=== PATIENT | female | born 2005 | race Caucasian/White ===

== ENCOUNTER 2025-07-04 12:41 | Inpatient (IN) | payer BC ==
[~2025-07-04] VITALS: Ht 157.5 cm; Wt 64.0 kg
[2025-07-04 12:45] VITALS: O2SAT 99
[2025-07-04] MEDS: LEVETIRACETAM 1000MG PREMIX 100 ML IV ONE (14:38)
[2025-07-04 14:45] LABS: HEMATOCRIT. 39.1 % (36.0-48.0); HEMOGLOBIN. 13.0 g/dL (12.0-16.0); MEAN PLATELET VOLUME 7.9 fl (7.4-10.4); PLATELET 412 x1000/uL (130-400); RED BLOOD CELL COUNT 4.29 mill/uL (4.2-5.4); RED CELL DISTRIBUTION WIDTH 13.6 % (11.6-14.6)
[2025-07-04 14:58] LABS: CREATININE 0.7 mg/dL (0.6-1.0)
[2025-07-04 14:59] LABS: ETHANOL BLOOD < 10 mg/dL (<10); UREA NITROGEN BLOOD 9 mg/dL (9-23)
[2025-07-04 15:00] LABS: ASPARTATE AMINOTRANSFERASE 16 IU/L (<34); PROTEIN TOTAL 7.0 g/dL (6.0-8.3)
[2025-07-04 15:01] LABS: BILIRUBIN DIRECT 0.1 mg/dL (<=3.0); BILIRUBIN TOTAL 0.4 mg/dL (0.1-1.0)
[2025-07-04 15:29] LABS: HCG SCREEN NEGATIVE
[2025-07-04 15:46] LABS: LYMPHOCYTES % MANUAL 14.0 % (20.0-60.0); MONOCYTES % MANUAL 3.0 % (2.0-8.0); NEUTROPHILS % MANUAL 83.0 % (45.0-75.0); PLATELET ESTIMATE INCREASED
[2025-07-04 18:38] LABS: CLARITY URINE CLOUDY (CLEAR); COLOR URINE YELLOW (YELLOW); GLUCOSE URINE NEGATIVE (NEGATIVE); KETONES URINE TRACE (NEGATIVE); LEUKOCYTE ESTERASE URINE NEGATIVE (NEGATIVE); NITRITE URINE NEGATIVE (NEGATIVE); OCCULT BLOOD URINE TRACE (NEGATIVE); PH URINE 5.0 (4.5-8.0); PROTEIN URINE TRACE (NEGATIVE); SPECIFIC GRAVITY URINE 1.018 (1.005-1.030); UROBILINOGEN URINE 0.2 E.U./dL (0.2-1.0)
[2025-07-04 18:48] LABS: *AMPHETAMINES SCREEN URINE NEGATIVE (NEGATIVE); *BARBITURATES SCREEN URINE NEGATIVE (NEGATIVE); *BENZODIAZEPINES SCREEN URINE NEGATIVE (NEGATIVE); *COCAINE SCREEN URINE NEGATIVE (NEGATIVE); CANNABINOID URINE SCREEN NEGATIVE (NEGATIVE); ECSTASY MDMA SCREEN URINE NEGATIVE (NEGATIVE); METHADONE URINE SCREEN NEGATIVE (NEGATIVE); OPIATES URINE SCREEN NEGATIVE (NEGATIVE); PHENCYCLIDINE URINE SCREEN NEGATIVE (NEGATIVE)
[2025-07-04 19:45] LABS: RBC URINE NONE SEEN /hpf (0-2); WBC URINE 0-2 /hpf (0-2)
[2025-07-04 19:46] LABS: BACTERIA URINE TRACE; MUCUS URINE TRACE /lpf (< = 2+); SQUAMOUS EPITHELIAL CELL URINE 2+ /lpf (RARE/1+); URIC ACID CRYSTALS URINE 2+ /lpf
[2025-07-04 20:00] VITALS: BP 94/52; PULSE 99; RESP 17; TEMP 37; O2SAT 95
[2025-07-04] MEDS ORDERED: DIPHENHYDRAMINE 50MG/ML VIAL IV PRN (22:00)
[2025-07-04] MEDS: SODIUM CHLORIDE 0.9% 3ML FLUSH IVF SCH (22:00)
[2025-07-04] MEDS ORDERED: LORAZEPAM 2MG/ML UD SYRINGE IV PRN (22:00)
[2025-07-04] MEDS ORDERED: ACETAMINOPHEN 325MG TABLET PO PRN ×2 (22:00)
[2025-07-04] MEDS ORDERED: ONDANSETRON HCL 4MG/2ML INJ IV PRN (22:00)
[2025-07-05] VITALS (7 sets, daily range): BP systolic 90–114; BP diastolic 52–71; PULSE 89–106; RESP 16–18; TEMP 36.6–37.0296; O2SAT 97–100
[2025-07-05] MEDS: LEVETIRACETAM 1000MG PREMIX 100 ML IV SCH (08:38)
[2025-07-05] MEDS ORDERED: LEVETIRACETAM 1,000MG in NACL 100ML PREMIX IV SCH (09:00)
[2025-07-05] MEDS ORDERED: KEPPSOL MT (15:05)
[2025-07-05] MEDS ORDERED: LACO100T2 PO (15:05)
== END 2025-07-05 17:04 | disposition home or self-care (01) | DRG 101 ==
LOC: ER 12:41 → 8EST 16:34 → EDBEDREQTM 16:41 → EDBEDREQ 16:41
PROVIDERS: ADMIT Internal Medicine; ATTEND Internal Medicine
DX: G40.909 Epilepsy, unspecified, not intractable, without status epilepticus (principal); Z88.0 Allergy status to penicillin; Z91.148 Patient's other noncompliance with medication regimen for other reason
CPT/HCPCS: 36415; 71045; 80048; 80076; 80305; 80320; 80339; 81003; 84703; 85025; 93005; 96374; 99291; J1953; G0480